=== PATIENT | female | born 1985 | race Caucasian/White ===

== ENCOUNTER 2016-09-12 11:58 | Emergency (ER) | payer SELFPAY ==
[~2016-09-12] VITALS: Ht 165.1 cm; Wt 65.8 kg
[~2016-09-12 11:58] MED LIST: ALBUTEROL0.09 MG/A2 INH; AMOXICILLIN500 MG PO; AMOXIL500 MG PO; ANAPROX DS550 MG PO; AUGMENTIN 875 M1 TAB PO; BACTRIM DS 8001 TA1 PO; CIPRO250 MG PO; CIPROFLOXACIN500 MG PO; CLARITIN-D 12 H1 TAB PO; CLARITIN10 MG PO; CLEOCIN150 MG PO; COMPAZINE10 MG PO; CYMBALTA30 MG PO; DARVOCET N 1001 TAB PO; DIFLUCAN150 MG PO; EFFEXOR XR150 MG PO; HYCODAN,HYDROME10 ML PO; HYDROCODONE BIT1 T11 PO; MEDROL DOSEPAK4 MG PO; MOTRIN600 MG PO; MOTRIN800 MG PO; Motrin,Rufen800 MG PO; NAPROSYN500 MG PO; NORCO 325 MG-101 TAB PO; PERCOCET 325 MG1 TA2 PO; PREDNICOT20 MG PO; PRISTIQ50 MG PO; Peridex 473 ML473 ML PO; ROBAXIN500 MG PO; ROBITUSSIN AC 110 ML PO; TYLENOL W/CODEI1 TA2 PO; VICODIN 5/500 505 MG PO; VICODIN 500 MG-1 TAB PO; ZANTAC 300300 MG PO; ZITHROMAX Z PA250 MG PO; ZOFRAN ODT4 MG SL
[2016-09-12] MEDS ORDERED: TRAZODONE50 MG PO (12:05)
[2016-09-12] MEDS ORDERED: CLINDAMYCIN HC300 MG PO (12:55)
== END 2016-09-12 13:08 | disposition home or self-care (01) ==
LOC: ED 11:58
DX: K02.9 Dental caries, unspecified (principal); Z88.1 Allergy status to other antibiotic agents; Z98.51 Tubal ligation status; Z79.899 Other long term (current) drug therapy

== ENCOUNTER 2018-01-12 14:35 | Emergency (ER) | payer BC ==
[~2018-01-12] VITALS: Ht 165.1 cm; Wt 65.8 kg
[~2018-01-12 14:35] MED LIST changes: +CLINDAMYCIN HC300 MG PO; +TRAZODONE50 MG PO
[2018-01-12] MEDS ORDERED: MEDROL DOSEPAK4 MG PO (17:00)
[2018-01-12] MEDS ORDERED: CYCLOBENZAPRINE10 MG PO (17:00)
[2018-01-12] MEDS ORDERED: NAPROSYN500 MG PO (17:00)
== END 2018-01-12 17:02 | disposition home or self-care (01) ==
LOC: ED 14:35
DX: S16.1XXA Strain of muscle, fascia and tendon at neck level, initial encounter (principal); Z88.1 Allergy status to other antibiotic agents; Z79.899 Other long term (current) drug therapy; Z98.51 Tubal ligation status; X58.XXXA Exposure to other specified factors, initial encounter; Y93.89 Activity, other specified; Y92.89 Other specified places as the place of occurrence of the external cause; Y99.8 Other external cause status

== ENCOUNTER 2020-01-10 16:03 | Emergency (ER) | payer SELFPAY ==
[~2020-01-10] VITALS: Ht 165.1 cm; Wt 65.8 kg
[~2020-01-10 16:03] MED LIST changes: +CYCLOBENZAPRINE10 MG PO
[2020-01-10 17:30] LABS: ALKALINE PHOSPHATASE 57 U/L (45-117); BUN 10 mg/dl (7-24); CHLORIDE 109 mmol/L (98-107); LIPASE 144 U/L (73-393); SGOT/AST 7 IU/L (3-35); SGPT/ALT 19 U/L (12-78); SODIUM 139 mmol/L (136-145); TOTAL PROTEIN 7.4 gm/dL (6.4-8.2)
[2020-01-10 17:31] LABS: TROPONIN I < 0.015 ng/ml (<0.045)
[2020-01-10 17:37] LABS: ACT PARTIAL THROMBO TIME 25.1 SECONDS (20.0-32.1); INTERNATIONAL NORM RATIO 0.9 (2.0-3.5)
[2020-01-10 17:41] LABS: BASO % 0.6 % (0.0-1.0); EOS # 0.2 10*3/uL (0.0-0.4); EOS % 2.6 % (1.0-4.0); HEMATOCRIT 39.7 % (37.0-47.0); LYMPH # 1.5 10*3/uL (1.3-4.4); LYMPH % 23.5 % (27.0-41.0); MEAN CELL VOLUME 93.6 fl (81.0-99.0); MEAN CORPUSCULAR HGB 31.4 pg (27.0-31.0); MEAN CORPUSCULAR HGB CONC 33.5 g/dl (33.0-37.0); MONO # 0.5 10*3/uL (0.1-1.0); MONO % 7.9 % (3.0-9.0); NEUT # 4.1 10*3/uL (2.3-7.9); NEUT % 65.1 % (47.0-73.0); PLATELET COUNT AUTOMATED 286 10*3/uL (130-400); RED BLOOD COUNT 4.24 10*6/uL (4.10-5.10); RED CELL DISTRI WIDTH 11.8 % (0-14.5); WHITE BLOOD COUNT 6.2 10*3/uL (4.8-10.8)
[2020-01-10 18:29] LABS: BILIRUBIN NEGATIVE (NEGATIVE); BLOOD NEGATIVE (NEGATIVE); CLARITY CLEAR (CLEAR); COLOR YELLOW (YELLOW); GLUCOSE NEGATIVE (NEGATIVE); KETONE NEGATIVE (NEGATIVE); LEUKO ESTERASE NEGATIVE (NEGATIVE); NITRITE NEGATIVE (NEGATIVE); PH 8.5 (5.0-9.0); SPECIFIC GRAVITY 1.005 (1.005-1.030); UROBILINOGEN 0.2 E.U./dl (0.2-1.0)
[2020-01-10 18:30] LABS: BACTERIA 2+; WBC 0-2 wbc/hpf (0-5)
[2020-01-10] MEDS ORDERED: ZOFRAN4 MG PO (19:09)
== END 2020-01-10 19:11 | disposition home or self-care (01) ==
LOC: ED 16:03
PROVIDERS: Nurse Practitioner Family
DX: R68.89 Other general symptoms and signs (principal); Z88.8 Allergy status to other drugs, medicaments and biological substances; Z79.899 Other long term (current) drug therapy

== ENCOUNTER 2020-03-09 14:13 | Emergency (ER) | payer SELFPAY ==
[~2020-03-09] VITALS: Ht 165.1 cm; Wt 68.0 kg
[~2020-03-09 14:13] MED LIST changes: +ZOFRAN4 MG PO
[2020-03-09] MEDS ORDERED: VISTARIL50 MG PO (14:29)
[2020-03-09] MEDS ORDERED: KENALOG 0.1%80 GM T (14:29)
[2020-03-09] MEDS ORDERED: PREDNISONE10 MG PO (14:29)
== END 2020-03-09 14:36 | disposition home or self-care (01) ==
LOC: ED 14:13
DX: L23.7 Allergic contact dermatitis due to plants, except food (principal); Z88.8 Allergy status to other drugs, medicaments and biological substances; Z79.899 Other long term (current) drug therapy; Z87.891 Personal history of nicotine dependence

== ENCOUNTER → 2020-11-30 | Outpatient (CLI) | payer BC ==
[~2020-11-30] MED LIST changes: +BUSPAR5 MG PO; +KENALOG 0.1%80 GM T; +PREDNISONE10 MG PO; +VISTARIL50 MG PO; +VYVANSE60 MG PO
== END | disposition home or self-care (01) ==
LOC: US 17:00
PROVIDERS: ATTEND Nurse Practitioner Women's Health
DX: N94.6 Dysmenorrhea, unspecified (principal); N94.89 Other specified conditions associated with female genital organs and menstrual cycle

== ENCOUNTER 2021-12-24 10:14 | Emergency (ER) | payer BC ==
[~2021-12-24] VITALS: Ht 167.6 cm; Wt 72.6 kg
[2021-12-24] MEDS ORDERED: PERIDEX118 ML MM (10:59)
[2021-12-24] MEDS ORDERED: AUGMENTIN 500500 M1 PO (11:02)
== END 2021-12-24 11:09 | disposition home or self-care (01) ==
LOC: ED 10:14
DX: K02.9 Dental caries, unspecified (principal)

== ENCOUNTER 2023-03-17 14:20 | Emergency (ER) | payer BC ==
[~2023-03-17] VITALS: Ht 165.1 cm; Wt 70.3 kg
[~2023-03-17 14:20] MED LIST changes: +AUGMENTIN 500500 M1 PO; +PERIDEX118 ML MM
[2023-03-17] MEDS ORDERED: CYCLOBENZAPRINE10 MG PO (17:10)
== END 2023-03-17 17:13 | disposition home or self-care (01) ==
LOC: ED 14:20
DX: M62.838 Other muscle spasm (principal); M54.2 Cervicalgia; M25.511 Pain in right shoulder; J45.909 Unspecified asthma, uncomplicated; Z79.899 Other long term (current) drug therapy; Z79.2 Long term (current) use of antibiotics; Z98.51 Tubal ligation status

== ENCOUNTER → 2024-07-18 | Outpatient (CLI) | payer BC ==
[~2024-07-18] MED LIST changes: +AMOX-CLAV 875-1 EACH PO; +BUSPIRONE15 MG PO; +Cleocin150 MG PO; +SLEEP AID25 M1 PO; +VENLAFAXINE HY150 M2 PO
[2024-07-18 15:21] LABS: BASO % 0.6 % (0.0-1.0); EOS # 0.2 10*3/uL (0.0-0.4); EOS % 3.8 % (1.0-4.0); HEMATOCRIT 36.8 % (37.0-47.0); MEAN CELL VOLUME 93.9 fl (81.0-99.0); MEAN CORPUSCULAR HGB 31.4 pg (27.0-31.0); MEAN CORPUSCULAR HGB CONC 33.4 g/dl (33.0-37.0); MEAN PLATELET VOLUME 8.6 fl (9.6-12.3); MONO # 0.4 10*3/uL (0.1-1.0); MONO % 7.1 % (3.0-9.0); NEUT # 3.3 10*3/uL (2.3-7.9); NEUT % 65.8 % (47.0-73.0); PLATELET COUNT AUTOMATED 319 10*3/uL (130-400); RED BLOOD COUNT 3.92 10*6/uL (4.10-5.10); WHITE BLOOD COUNT 5.1 10*3/uL (4.8-10.8)
[2024-07-18 15:50] LABS: BUN 11 mg/dl (9-23); CHLORIDE 104 mmol/L (98-107); POTASSIUM 3.8 mmol/L (3.4-5.1)
== END | disposition home or self-care (01) ==
LOC: LAB 15:06
PROVIDERS: ATTEND Physician Assistant
DX: Z01.818 Encounter for other preprocedural examination (principal); K82.3 Fistula of gallbladder